=== PATIENT | female | born 1955 ===

== ENCOUNTER 2021-10-19 05:46 | Day surgery (SDC) | payer OTHER ==
[~2021-10-19] VITALS: Ht 167.6 cm; Wt 71.2 kg
[~2021-10-19 05:46] MED LIST: ANASTROZOLE PO; MICARDIS40 MG PO; ROSUVAST PO
== END 2021-10-19 11:00 | disposition home or self-care (01) ==
LOC: CIR.AMB 05:46
PROVIDERS: ATTEND Orthopaedic Surgery
DX: M75.122 Complete rotator cuff tear or rupture of left shoulder, not specified as traumatic (principal); M24.112 Other articular cartilage disorders, left shoulder; M75.22 Bicipital tendinitis, left shoulder; Z20.822 Contact with and (suspected) exposure to COVID-19; Z88.0 Allergy status to penicillin; I10 Essential (primary) hypertension